=== PATIENT | male | born 1980 | race Caucasian/White ===

== ENCOUNTER 2017-07-21 08:57 | Emergency (ER) | payer OTHER ==
[~2017-07-21] VITALS: Ht 182.9 cm; Wt 95.7 kg
--- NOTE | 2017-07-21 09:29 | PHYS DOC ---
Past History Past Medical History: Hypertension Past Surgical History: Other Smoking: Non-smoker Alcohol Use: Rarely Drug Use: None Adult General Chief Complaint Chief Complaint: BACK PAIN OR INJURY [facility] HPI 37-year-old male patient with history of intermittent episodes of low back pain complaining of sudden onset of right lower back pain while turning to his side without fall. Patient states the pain is constant and getting episodes of severe pain with special movement. Patient denies radiation of pain, neuro deficit, urine and bowel incontinence, fever and chills. Patient states his pain is the same as his previous back pain. Patient states he didn't take pain medication today and rated his pain 8/10. Review of Systems Review of Systems Constitutional: Denies fever or chills [] Eyes: Denies change in visual acuity, redness, or eye pain [] HENT: Denies nasal congestion or sore throat [] Respiratory: Denies cough or shortness of breath [] Cardiovascular: No additional information not addressed in HPI [] GI: Denies abdominal pain, nausea, vomiting, bloody stools or diarrhea [] : Denies dysuria or hematuria [] Musculoskeletal: Reports back pain Integument: Denies rash or skin lesions [] Neurologic: Denies headache, focal weakness or sensory changes [] Endocrine: Denies polyuria or polydipsia [] All other systems were reviewed and found to be within normal limits, except as documented in this note. Allergies Allergies Allergies Coded Allergies Type Severity Reaction Last Updated Verified ciprofloxacin Allergy Unknown 07/21/17 Yes Physical Exam Physical Exam Constitutional: Well developed, well nourished, moderate distress, non-toxic appearance. [] HENT: Normocephalic, atraumatic, bilateral external ears normal, oropharynx moist, no oral exudates, nose normal. [] Eyes: PERRLA, EOMI, conjunctiva normal, no discharge. [] Neck: Normal range of motion, no tenderness, supple, no stridor. [] Cardiovascular:Heart rate regular rhythm, no murmur [] Lungs & Thorax: Bilateral breath sounds clear to auscultation [] Abdomen: Bowel sounds normal, soft, no tenderness, no masses, no pulsatile masses. [] Skin: Warm, dry, no erythema, no rash. [] Back: Right paraspinal muscle spasm without midline tenderness, limited range of motion of back because of pain[] Extremities: No tenderness, no cyanosis, no clubbing, ROM intact, no edema. [] Neurologic: Alert and oriented X 3, normal motor function, normal sensory function, no focal deficits noted. [] Psychologic: Affect normal, judgement normal, mood normal. [] Current Patient Data Vital Signs Vital Signs Date Time Temp Pulse Resp B/P (MAP) Pulse Ox O2 Delivery O2 Flow Rate FiO2 07/21/17 09:08 98.3 84 16 97 Room Air EKG EKG [] Radiology/Procedures Radiology/Procedures [] Course & Med Decision Making Course & Med Decision Making Evaluation of patient in ER showed 37-year-old male patient with history of previous intermittent episodes of back pain presented to ER with another episode of back pain since yesterday without injury. Patient had muscle spasm and limited range of motion and treated with Toradol and flexing and felt better. The patient was instructed to apply ice on his back and follow-up with his primary care physician. Dragon Disclaimer Dragon Disclaimer This electronic medical record was generated, in whole or in part, using a voice recognition dictation system. Departure Departure: Impression: Primary Impression: Acute lumbosacral myofascial strain Disposition: HOME, SELF-CARE (at [id number]) Condition: IMPROVED Referrals: PCP,NO (PCP) Patient Instructions: Lumbosacral Strain Additional Instructions: Apply ice on your back Follow-up with your primary care physician in 3-5 days Return to ER if not getting better Scripts Tramadol Hcl (ULTRAM) 50 Mg Tablet 50 MG PO PRN Q6HRS Y for PAIN for 14 Days, TAB Prov: VAISHNAVI VELEZ MD 07/21/17 Ibuprofen (IBUPROFEN) 800 Mg Tablet 1 TAB PO TID, #30 TAB Prov: VAISHNAVI VELEZ MD 07/21/17 Cyclobenzaprine Hcl (CYCLOBENZAPRINE HCL) 10 Mg Tablet 1 TAB PO TID, #30 TAB Prov: VAISHNAVI VELEZ MD 07/21/17 VAISHNAVI VELEZ MD Jul 21, 2017 09:29
[2017-07-21] MEDS ORDERED: IBUP800T19 PO (09:43)
[2017-07-21] MEDS ORDERED: CYCL-331 PO (09:43)
[2017-07-21] MEDS ORDERED: TRAM-48 PO (09:43)
[2017-07-21] MEDS ORDERED: KETOROLAC 60 MG/2 ML VIAL. IM ONE (09:45)
[2017-07-21] MEDS ORDERED: CYCLOBENZAPRINE 10 MG TABLET. PO ONE (09:45)
[2017-07-21 09:46] VITALS: BP 138/95
== END 2017-07-21 09:46 | disposition home or self-care (01) ==
LOC: ER 08:57
DX: S39.012A Strain of muscle, fascia and tendon of lower back, initial encounter (principal); I10 Essential (primary) hypertension; Z88.1 Allergy status to other antibiotic agents; X50.9XXA Other and unspecified overexertion or strenuous movements or postures, initial encounter; Y93.89 Activity, other specified; Y99.8 Other external cause status; Y92.89 Other specified places as the place of occurrence of the external cause
CPT/HCPCS: 96372; 99283; J1885